=== PATIENT | male | born 1950 | race Caucasian/White ===

== ENCOUNTER 2018-06-06 05:53 | Inpatient (IN) | payer BC ==
[2018-06-06] MEDS ORDERED: VANCOMYCIN 1,000 MG VIAL (RESTRICTED TO ID ONLY) ONE ×2 (07:11→08:09)
[2018-06-06] MEDS ORDERED: ROPIVICAINE 0.2%/MORPH PF/KETOROLAC - 51ML DISP.SYRINGE IA ONE (07:14)
[2018-06-06] MEDS ORDERED: MIDAZOLAM HCL 2 MG/2 ML SINGLE DOSE VIAL ONE ×2 (08:09)
[2018-06-06] MEDS ORDERED: TRANEXAMIC ACID 1000 MG/10 ML VIAL ONE (08:09)
[2018-06-06] MEDS ORDERED: ONDANSETRON 4 MG/2 ML VIAL ONE (08:09)
[2018-06-06] MEDS ORDERED: DEXAMETHASONE SOD PHOSPHATE 4 MG/1 ML VIAL ONE (08:09)
[2018-06-06] MEDS ORDERED: PROPOFOL 20 ML ONE ×2 (08:09)
[2018-06-06] MEDS ORDERED: KETOROLAC TROMETHAMINE 30 MG/1 ML VIAL ONE (08:09)
[2018-06-06] MEDS ORDERED: ceFAZolin SODIUM 1 GM VIAL ONE ×2 (08:09→11:59)
[2018-06-06] MEDS ORDERED: DEXAMETHASONE SOD PHOSPHATE/PF 10 MG/ML SDV ONE (08:25)
[2018-06-06] MEDS ORDERED: BUPIVACAINE HCL/PF (5 MG/ML) 30 ML VIAL IJ ONE (08:25)
[2018-06-06] MEDS ORDERED: VANCOMYCIN 1,000 MG in DEXTROSE 5%-WATER - 250 ML IVPB ONE (08:27)
[2018-06-06] MEDS ORDERED: CEFAZOLIN 1 GM/D5W 1 GM/50 ML BAG IVPB ONE (08:30)
[2018-06-06] MEDS ORDERED: ePHEDrine SULFATE 50 MG/1 ML AMPULE ONE (10:57)
[2018-06-06] MEDS ORDERED: BENZOIN/ALOE VERA/STORAX/TOLU 58 ML BOTTLE ONE (11:12)
[2018-06-06] MEDS ORDERED: ONDANSETRON 4 MG/2 ML VIAL IVPUSH PRN ×2 (13:13→13:30)
[2018-06-06] MEDS ORDERED: oxyCODONE HCL 5 MG TABLET PO PRN (13:13)
[2018-06-06] MEDS ORDERED: ACETAMINOPHEN 1000 MG/100 ML VIAL (NON FORMULARY) IVPB ONE ×2 (13:13→13:58)
[2018-06-06] MEDS ORDERED: LACTATED RINGERS SOLUTION 1,000 ML IV SCH ×2 (13:15→13:30)
[2018-06-06] MEDS ORDERED: MAG HYDROX/AL HYDROX/SIMETH 30 ML UNIT-DOSE CUP PO PRN (13:30)
[2018-06-06] MEDS ORDERED: MAGNESIUM HYDROX 2400MG/30ML ORAL SUSPENSION 30 ML CUP PO PRN (13:30)
--- NOTE | 2018-06-06 13:38 | PN ---
Progress Note (short form) - Note Progress Note: 67M s/p RIGHT HAILEY POD #0. -Pain control. -DVT PPX: -Chemical: ASA 81mg PO BID x 6 weeks. -Mechanical: MARCIO's, SCD's. -Incentive spirometry. -PT/OT/Rehab, OOB. -WBAT RLE. -Advance diet as tolerated. -f/u post-op trial of void. -f/u AM labs. -Care per medical hospitalist team. -Discharge planning: f/u w/[facility] [place] office next 2017; call for appointment: . -Will follow. Fam Estevez MD (Orthopaedic Surgery).
--- NOTE | 2018-06-06 13:41 | OP ---
Operative Note - Note: Operative Date: 06/06/18 Pre-Operative Diagnosis: Right hip DJD. Operation: Right HAILEY. Implants: [place]. Cup - Tritanium 58mm. Poly - 32mm, neutral. Stem - Accolade II, #5, high offset (127 degree NSA). Head - 32mm, Biolox/Delta Ceramic, -4mm length. Surgeon: Fam Estevez [employer] Supervisor: Lemuel Estevez Anesthesiologist/LIME SLUDGE MIXER: Gina Odom Anesthesia: Spinal Specimens Removed: Right femoral head Estimated Blood Loss (mls): 50 Fluid Volume Replaced (mls): 1,600 (Crystalloid) Operative Report Dictated: Yes
[2018-06-06] MEDS ORDERED: ACETAMINOPHEN INJECTION 100 ML IVPB ONE (13:46)
[2018-06-06] MEDS: oxyCODONE HCL 5 MG TABLET PO PRN (18:26)
[2018-06-06] MEDS: CEFAZOLIN 1 GM/D5W 1 GRAM/50 ML BAG IVPB SCH (18:26)
[2018-06-06] MEDS: ACETAMINOPHEN 325 MG TABLET (FP) PO SCH (21:24)
[2018-06-06] MEDS: ASPIRIN 81 MG CHEWABLE TABLETS PO SCH (21:25)
[2018-06-06] MEDS: oxyCODONE HCL 10 MG SUSTAINED ACTING TABLET PO SCH (21:25)
[2018-06-06] MEDS: SENNOSIDES/DOCUSATE COMBO (SENNA PLUS) TABLET (UD) PO SCH (21:25)
[2018-06-07] MEDS: ACETAMINOPHEN 325 MG TABLET (FP) PO SCH ×4 (01:09→19:35)
[2018-06-07] MEDS: CEFAZOLIN 1 GM/D5W 1 GRAM/50 ML BAG IVPB SCH (01:09)
[2018-06-07 08:11] LABS: HEMATOCRIT 37.4 % (35.4-49); HEMOGLOBIN 12.6 GM/dl (11.7-16.9); MCH 32.2 pg (25.7-33.7); MCHC 33.7 g/dl (32.0-35.9); MEAN CELL VOLUME 95.4 fl (80-96); MEAN PLT VOLUME 7.9 fl (7.5-11.1); PLATELET COUNT 201 K/MM3 (134-434); RBC 3.92 M/mm3 (4.00-5.60); RDW 12.3 % (11.9-15.9); WHITE BLOOD COUNT 10.9 K/mm3 (4.0-10.8)
[2018-06-07 08:24] LABS: ANION GAP 5 (8-16); BLOOD UREA NITROGEN 9 mg/dl (7-18); CALCIUM 8.1 mg/dl (8.4-10.2); CHLORIDE 98 mmol/L (98-107); CO2 28 mmol/L (22-28); CREATININE 0.6 mg/dl (0.6-1.3); GLUCOSE,RANDOM 99 mg/dl (74-106); SODIUM 131 mmol/L (136-145)
[2018-06-07] MEDS: oxyCODONE HCL 5 MG TABLET PO PRN (08:53)
--- NOTE | 2018-06-07 09:05 | OP ---
Date of Operation: 06/06/2018 Surgeon: Fam Estevez MD Barn Worker: Lemuel Estevez MD Pre-Operative Diagnosis: Osteoarthritis right hip. Post-Operative Diagnosis: Osteoarthritis right hip. Surgical Procedure: Right total hip replacement via direct superior approach. Anaesthesia: Spinal, sedation. Position: Left lateral decubitus. Incision: Direct superior. Estimated Blood Loss: 50mL. Intravenous Fluid: 1.6L crystalloid. Specimens: Right femoral head. Drains: None. Complications: None. Urine output: None. Bacteriology: None. Transfusions: None. Closure: #1, 2-0 vicryl. 3-0 Biosyn. Indications: The patient was indicated for a right total hip replacement in order to facilitate improved motion and mobilization, and to prevent the complications associated with a sedentary lifestyle. The patient was identified in the holding area by his armband. A long discussion was held with the patient regarding the risks, benefits and alternatives of the above named procedure. Risks include but are not limited to : pain, bleeding, infection, damage to surrounding structures (including nerves , blood vessels, skin, ligaments, tendons and bone), wound complications, failure of hardware/implants/reduction, need for further surgery, blood clots, myocardial infarction, pulmonary embolism, cerebrovascular insult, anaesthesia complications, compartment syndrome, limb loss, limp, loss of function, and . Benefits as mentioned above. Alternatives include no surgery. All questions were answered. The patient understood and agreed to the procedure. Informed consent was obtained, witnessed and verified. The patients correct operative limb that is the right lower extremity was marked, and the patient was taken to the operating room after being seen by the anesthesia and nursing staff. Procedure: The patient was brought into the operating room, placed on the OR table and secured with a safety strap. Consent and the operative site were again verified with the patient and nursing and anaesthesia staff. Anaesthesia, IV antibiotics, and TXA were then administered without complication. A time out was done, led by me the attending surgeon. The patient was gently turned into the left lateral decubitus position. An axillary roll was placed. A Stulberg hip positioner with well-padded bolsters was used to secure the patient in the lateral decubitus position. The down arm was placed on a well-padded arm board. The up arm was brought across the patients body and placed on 2 pillows. Egg crates were placed under the down knee and ankle, and bony prominences were well padded. The operative site was then prepped and draped in the standard sterile fashion. Time out was again done and the case began. Operation: A standard Direct Superior surgical approach was utilized to access the hip joint. With a #10 blade, a skin incision was taken from the posterior-superior corner of the greater trochanter in a posterior-superior direction. This was approximately 10cm in length. Electrocautery was utilized to carry the deep dissection down to the level of the gluteus gena fascia. Hemostasis was assured using electrocautery (bipolar and unipolar). The gluteus gena fascia was incised, and the fibers of gluteus gena were in line with the trajectory of the incision. This confirmed the accuracy of our planned incision based on palpated landmarks and surface anatomy. A Wright elevator was used to split the distal fibers of gluteus gena, in line with the fibers, just proximal to their insertion into the iliotibial band. Great care was taken not to incise the iliotibial band. Gluteus gena fibers were split proximally using the Wright elevator until reaching the apex of the wound. Again, hemostasis was assured. The roni-capsular fat pad was exposed utilizing curved handle bar retractors. The roni-capsular fat pad was excised off the inferior border of the gluteus medius muscle belly, exposing the insertion of the hip short external rotator muscle group. The piriformis tendon was identified and freed from adhesions to the capsule using a 90-degree clamp. This tendon was then released from its insertion using electrocautery. The tendon was tagged with a # 1 Ethibond suture and tied to the superior aspect of the proximal wound apex. The tendon, thus, served as a sling to retract and protect the sciatic nerve. With the piriformis tendon reflected away from its insertion, the hip joint capsule was visualized. Electrocautery was used to perform a capsulotomy and synovial joint fluid was aspirated. Next, the superior leaflet of the capsule was elevated using a Wright elevator to create separation from the underlying labrum and also to create a plane for later placement of a supra-acetabular retractor. The labrum was excised using electrocautery. The hip was then gently dislocated. A standard femoral neck cut was made using an oscillating saw. A 3/4 " osteotome was delivered into the femoral head using mallet strikes. The femoral head was then removed. Anterior, inferior, and supra-acetabular retractors were placed to expose the acetabulum. The pulvinar was excised using electrocautery. Odd sized reamers were used to prepare the acetabular bone bed. Healthy blushes of bleeding were observed from the reamed cancellous bone bed. Next, a size 58mm Ezequiel Tritanium cup was impacted into position, achieving excellent press-fit. A size 32mm neutral polyethylene liner was then impacted into the cup. Excellent placement of the polyethylene liner, and excellent press fit of the cup were confirmed. Next, attention was turned to femoral preparation. The anterior and supra- acetabular retractors were removed. The cut femoral neck was then exposed using the inferior acetabular retractor around the calcar, and a straight 90-degree retractor to retract gluteus medius. The box-cutter osteotome was used with a mallet to removed bone from the lateral femoral neck. An opening reamer was delivered by hand to find the femoral canal. A lateralizing reamer was used with power to lateralize the proximal entry into the canal, so as to avoid placing the stem into varus. The femoral bone bed was then prepared using broaches with gentle mallet strikes. The tibia was used as a goniometer with which to dial in approximately 5 degrees of stem anteversion. Trial components were assembled and the hip was reduced. The hip was taken through a full range of motion and proved stable throughout this range of motion, including at the extremes of positions of compromised. All trial femoral components were removed. Another 1g of IV Ancef was administered so that the bone bed would be rich with antibiotic at the time of seating of the femoral implant. A Ezequiel Accolade II (127-degree NSA, high offset) #5 stem was then implanted using gentle mallet strikes, diligently matching the prepared degree of stem anteversion. With the stem fully seated, a 32mm diameter, -4mm length ceramic/Biolox femoral head was then selected and implanted. The hip was once again reduced, and taken through a full range of motion. Stability was once again assured. Leg length was satisfactory. The wounds were copiously irrigated, as they had been regularly throughout the case so as to keep the retracted tissues wet, and in order to flush out wound debris. The capsule was primarily repaired using #1 Vicryl sutures in simple interrupted fashion. The tagged piriformis tendon was released and tied to the posterior-lateral corner of the greater trochanter. The remaining wounds were again irrigated. Hemostasis was assured and the wound was closed primarily using #1 and 2-0 Vicryl sutures. A 3-0 Biosyn suture was used to perform a subcuticular wound closure. A sterile, compressive dressing was applied. The sponge and needle counts were correct at the end of the case and I, the attending, was present and scrubbed throughout the case. The patient was then transferred into a supine position and onto the hospital bed. True leg length was equivalent. A standard AP-pelvis x-ray was taken, demonstrating good overall alignment with a well reduced, congruent hip. There was no evidence of subsidence, loosening, or roni-prosthetic fracture. The patient was then was then transferred to the recovery room without incident/ complications and in stable condition, having tolerated the procedure well. MD HARRISON Orozco/[id number] MTDD
[2018-06-07] MEDS ORDERED: POTASSIUM CHLORIDE TABS 20 MEQ TABLET.ER (FP) PO ONE (09:15)
[2018-06-07] MEDS ORDERED: PANTOPRAZOLE 40 MG TABLET (FP) PO SCH (10:00)
[2018-06-07] MEDS ORDERED: VALSARTAN 80 MG TABLET (UD) PO SCH (10:00)
[2018-06-07] MEDS: oxyCODONE HCL 10 MG SUSTAINED ACTING TABLET PO SCH (10:15)
[2018-06-07] MEDS: SENNOSIDES/DOCUSATE COMBO (SENNA PLUS) TABLET (UD) PO SCH (10:20)
[2018-06-07] MEDS: ASPIRIN 81 MG CHEWABLE TABLETS PO SCH (10:56)
--- NOTE | 2018-06-07 11:39 | DS ---
Physical Exam: SUBJECTIVE: Patient seen and examined, patient reports feeling well reports minimal pain to the right lower extremity upon movement denies any paresthesias in extremities, patient is ambulatory with physical therapist and nursing units with the assistance of a walker denies any chest pain or shortness of breath OBJECTIVE: patient is a [id number] male with a past medical history of hypertension and degenerative joint disease, patient underwent an elective right total hip replacement on 06/06/[address] Estevez Vital Signs Temperature 97.9 F 06/07/18 05:00 Pulse Rate 65 06/07/18 05:00 Respiratory Rate 18 06/07/18 05:00 Blood Pressure 129/67 06/07/18 05:00 O2 Sat by Pulse Oximetry (%) 94 L 06/06/18 18:30 PHYSICAL EXAM GENERAL: The patient is awake, alert, and fully oriented, in no acute distress. HEAD: Normal with no signs of trauma. EYES: PERRL, extraocular movements intact, sclera anicteric, conjunctiva clear. ENT: Ears normal, nares patent, oropharynx clear without exudates, moist mucous membranes. NECK: Trachea midline, full range of motion, supple. LUNGS: Breath sounds equal, clear to auscultation bilaterally, no wheezes, no crackles, no accessory muscle use. HEART: Regular rate and rhythm, S1, S2 without murmur, rub or gallop. ABDOMEN: Soft, nontender, nondistended, normoactive bowel sounds, no guarding, no rebound, no hepatosplenomegaly, no masses. EXTREMITIES: 2+ pulses, warm, well-perfused, no edema right lower extremity dressing clean dry and intact less than 3 second capillary refill +3 pedal pulse SCD/Gianni's NEUROLOGICAL: Cranial nerves II through XII grossly intact. Normal speech, gait not observed. PSYCH: Normal mood, normal affect. SKIN: Warm, dry, normal turgor, no rashes or lesions noted. LABS CBC,CMP WBC 10.9 K/mm3 (4.0-10.8) H 06/07/18 07:30 RBC 3.92 M/mm3 (4.00-5.60) L 06/07/18 07:30 Hgb 12.6 GM/dl (11.7-16.9) 06/07/18 07:30 Hct 37.4 % (35.4-49) 06/07/18 07:30 MCV 95.4 fl (80-96) 06/07/18 07:30 MCH 32.2 pg (25.7-33.7) 06/07/18 07:30 MCHC 33.7 g/dl (32.0-35.9) 06/07/18 07:30 RDW 12.3 % (11.9-15.9) 06/07/18 07:30 Plt Count 201 K/MM3 (134-434) 06/07/18 07:30 MPV 7.9 fl (7.5-11.1) 06/07/18 07:30 Sodium 131 mmol/L (136-145) L 06/07/18 07:30 Potassium 3.0 mmol/L (3.5-5.1) L 06/07/18 07:30 Chloride 98 mmol/L (98-107) 06/07/18 07:30 Carbon Dioxide 28 mmol/L (22-28) 06/07/18 07:30 Anion Gap 5 (8-16) L 06/07/18 07:30 BUN 9 mg/dl (7-18) 06/07/18 07:30 Creatinine 0.6 mg/dl (0.6-1.3) 06/07/18 07:30 Creat Clearance w eGFR > 60 (>60) 06/07/18 07:30 Random Glucose 99 mg/dl (74-106) 06/07/18 07:30 Calcium 8.1 mg/dl (8.4-10.2) L 06/07/18 07:30 HOSPITAL COURSE: patient was admitted to the medical surgical floor after an elective right total hip replacement. Patient ambulated the floor on postoperative day 1 with physical therapy, home restorative services recommended. pain management with narcotic and nonnarcotic pain medication. Blood pressure remained ankle home medications continued. Patient was noted to be hypokalemic on postoperative day 1 potassium supplementation given. Plan: Discharge home with [facility] in home physical therapy a handout was given to patient in regards to physical therapy sessions Pain medications sent to pharmacy. Strict follow-up with orthopedist within 1 week return precautions reviewed Date of Admission:06/06/18 Date of Discharge: 06/07/18 Minutes to complete discharge: 45
[2018-06-07] MEDS ORDERED: MAGNESIUM SULFATE 2 GM in SODIUM CHLORIDE 100 ML IVPB ONE (13:51)
[2018-06-07] MEDS ORDERED: MAGNESIUM SULFATE IN WATER 2 GM/50 ML IVPB IVPB ONE (14:00)
[2018-06-07] MEDS ORDERED: KCL 10 MEQ IVPB 10 MEQ/100 ML INFUS.BAG IVPB SCH (14:00)
[2018-06-07 14:35] VITALS: TEMP 98
[2018-06-07 16:30] LABS: ANION GAP 4 (8-16); BLOOD UREA NITROGEN 9 mg/dl (7-18); CALCIUM 8.5 mg/dl (8.4-10.2); CHLORIDE 98 mmol/L (98-107); CO2 30 mmol/L (22-28); CREATININE 0.6 mg/dl (0.6-1.3); GLUCOSE,RANDOM 104 mg/dl (74-106); POTASSIUM 3.6 mmol/L (3.5-5.1); SODIUM 132 mmol/L (136-145)
[2018-06-07 18:28] VITALS: BP 104/63; PULSE 81
--- NOTE | 2018-06-08 13:44 | PATH ---
Surgical Pathology Report Patient Name: BRIDGET CUNNINGHAM Med. Rec. #: [id number] /Age/Gender: 1950 (Age: 67) / M Account: [id number] Location: [facility] MED-SURG Taken: 06/06/2018 Received: 06/06/2018 Reported: 06/08/2018 Physicians: Fam Estevez M.D. Specimen(s) Received RIGHT FEMORAL HEAD Clinical History Unilateral osteoarthritis of right hip Final Diagnosis RIGHT FEMORAL HEAD, RESECTION: DEGENERATIVE JOINT DISEASE, RIGHT HIP. Electronically Signed Sergo Kellogg M.D. Gross Description Received in formalin, labeled "right femoral head," is a 4.8 x 4.8 x 4.4 cm. femoral head with a 0.6 cm a portion of femoral neck attached. The margin of resection is smooth. There is a 4.5 cm in greatest dimension area of eburnation present. The remaining articular surface is washburn-yellow and diffusely granular. The underlying trabecular bone is yellow and hard. A manufacturer representative section is submitted in one cassette, following decalcification. /06/07/2018 [facility]06/07/2018
== END 2018-06-07 19:45 | disposition home or self-care (01) | DRG 470 ==
LOC: FM/S 05:53
PROVIDERS: ADMIT Orthopaedic Surgery Adult Reconstructive Orthopaedic Surgery; ATTEND Orthopaedic Surgery Adult Reconstructive Orthopaedic Surgery
PROC: 0SR903A Replacement of Right Hip Joint with Ceramic Synthetic Substitute, Uncemented, Open Approach (ICD-10-PCS; principal; 2018-06-06 10:52)
DX: M16.11 Unilateral primary osteoarthritis, right hip (principal); I10 Essential (primary) hypertension; E87.6 Hypokalemia
CPT/HCPCS: 36415; 73523-TC-FY; 80048; 83735; 85027; 86803; 88304-TC; 88311-TC; 94760; 97116-GP; 97162-GP; J0131